=== PATIENT | female | born 1960 | race Caucasian/White ===

== ENCOUNTER 2019-01-22 07:59 | Day surgery (SDC) | payer OTHER, SELFPAY ==
--- NOTE | 2019-01-13 04:18 | HP_ITS ---
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 Is patient in pain?: No Allergies aspirin Allergy (Mild, Verified 01/13/19 13:39) Swelling Medications amitriptyline 10 mg tablet 20 mg PO DAILY tab 01/13/19 [History Confirmed 01/13/19] citalopram 20 mg tablet 20 mg PO DAILY 01/13/19 [History Confirmed 01/13/19] esomeprazole magnesium 40 mg capsule,delayed release 40 mg PO DAILY 01/13/19 [History Confirmed 01/13/19] gabapentin 400 mg capsule 400 mg PO TID 01/13/19 [History Confirmed 01/13/19] hydrocodone 5 mg-acetaminophen 325 mg tablet 1 tab PO QHS 01/13/19 [History Confirmed 01/13/19] methocarbamol 500 mg tablet 500 mg PO TID 01/13/19 [History Confirmed 01/13/19] potassium chloride ER 10 mEq capsule,extended release 10 meq PO DAILY 01/13/19 [History Confirmed 01/13/19] PFSH Medical History Back pain (Acute) GERD (gastroesophageal reflux disease) (Acute) Hiatal hernia (Acute) Surgical History History of esophagogastroduodenoscopy (EGD) (Acute) S/P colonoscopy with polypectomy (Acute) S/P hernia repair (Acute) Family History Father Kidney disease Cancer kidney Social History (Updated 01/13/19 @ 16:19 by Kishan Irvin MD) Smoking Status: Never smoker alcohol intake: current alcohol intake frequency: a few times a week HPI HPI HPI: CARINA KUNZ is a 58 F who presents to the office today for HPI HPI Surgical H&P: Yes HPI: CARINA KUNZ is a 58 F who presents to the office today for Evaluation of a symptomatic hiatal hernia. Patient had a work-up for her shortness of breath which included a CTA of the chest. This showed a large sliding hiatal hernia with compressive atelectasis in the right lower lung. She has been on Nexium for better than 10 years. And usually has good relief with this. But recently she has noted an increasing amount of belching as well as nausea while being on the Nexium.She notes no reflux of symptoms when she bends over to tie her shoes. Patient had a recent upper scope completed in [place] which showed some mucosal changes consistent with Osorio's but biopsy results came back showing only some minimal intestinal metaplasia but no dysplasia.Of note the endoscopist did not mention the hiatal hernia being large whatsoever. And unfortunately I have no actual imaging to look at from the CAT scan. ROS General General: No weight change, appetite, fatigue, colon cancer, breast cancer or weakness HEENT HEENT: No difficulty swallowing, eye injury, eye surgery, swollen glands or hoarseness Endo Endocrine: No thyroid disease, diabetes mellitus, thyroid cancer, Hair loss, heat intolerance or cold intolerance Skin Skin: No rash or changing moles Breast Breast: No left breast lump, right breast lump, nipple discharge, breast pain, abnormal mammogram, abnormal US or breast enlargement Musc Musculoskeletal: Yes back problems and arthritis; no rheumatoid arthritis, gout or joint pain Cardio Cardiovascular: No murmur, pacemaker, heart disease, atrial fibrillation, high blood pressure, heart attack, heart stent, palpitations, shortness of breat with exertion or chest pain Psych Psychiatric: Yes anxiety; no depression or hearing voices Resp Respiratory: No shortness of breath, No sleep apnea, No cough, No COPD, No asthma, No emphysema, No wheezing Gastro Gastrointestinal: Yes abdominal pain, Yes nausea or vomiting, Yes diarrhea, No constipation, No blood in stool, Yes acid reflux, No hemorrhoids, No ulcers, No gallbladder problem, No black,tarry stools Peter Hematologic: No blood thinners, No blood disorders, No bleeding, No anemia, No blood clots Neuro Neurologic: No system reviewed and no additional complaints, except as docu, No as per HPI, No abnormal walking, No abnormal hearing, No abnormal movements, No abnormal speech, No behavioral changes, No burning sensations, No confusion, No seizure-like activity, No unsteadiness, No dizziness, No localized weakness, No frequent falls, No headache(s), No lack of coordination, No loss of vision, No memory loss, Yes numbness, No other visual disturbances, No radiating pain, No restless legs, No sensory deficit, No fainting, Yes tingling, No tremor(s), No weakness, No other Exam Const General: no acute distress, well developed, well hydrated Orientation: oriented to person, oriented to place, oriented to time [facility] Head: normocephalic, atraumatic Ears: external ears normal Mouth: moist mucous membranes Eyes Sclera: sclerae normal Pupils: normal by confrontation Neck Neck: no lymphadenopathy noted Neck mass: No Thyroid: thyroid normal, symmetrical Chest Chest palpation & inspection: normal inspection of the chest Breast Palpation: No nipple discharge Resp Effort & Inspection: normal respiratory effort Auscultation: clear to auscultation bilaterally Percussion: percussion normal Cardio Rate: regular rate Rhythm: regular rhythm Heart Sounds: no murmurs GI Palpation: soft, no hepatosplenomegaly, no masses, nontender Rectal Exam: other Other: Rectal exam deferred. Extrem General: normal to inspection, no clubbing, cyanosis or edema Assessment & Plan Problems 1. Hiatal hernia K44.9 2. Gastroesophageal reflux disease without esophagitis K21.9 Plan I have discussed the above with the patient. I have offered the patient esophagogastroduodenoscopy With 48-hour pH probe for evaluation. I have explained the risks/benefits of the procedure and described the procedure. I have discussed the risks with the patient, including but not limited to: infection, bleeding, perforation of the GI tract requiring emergency surgery, inability to complete the procedure, injury to any internal organs, complications of anesthesia, etc. - the patient understands and agrees to proceed. I have answered all the patient's questions to the patient's satisfaction and the patient has no further questions. The patient has been given instructions for the colon cleansing preparation. In addition the patient will need to have esophageal manometry. Orders Orders: EGD with 48 pH probe Today Coding Level of Care Code Off vis,new,level 3 Diagnoses Hiatal hernia K44.9 Gastroesophageal reflux disease without esophagitis K21.9 ??Esophagitis presence: without esophagitis 01/13/19 2660 <Electronically signed by Kishan garcia MD> Date _ Kishan Irvin MD I have re-examined the patient. There are no clinical changes since date of exam.
[2019-01-13 13:37] VITALS: BMI 27.8
[2019-01-22 08:54] VITALS: BP 121/107; PULSE 104; RESP 16; TEMP 36.6; O2SAT 100
== END 2019-01-22 08:52 | disposition home or self-care (01) ==
LOC: EN 08:01
PROVIDERS: Surgery; Family Provider Family Medicine; PCP Family Medicine; Referring Provider Surgery; Visit Provider Surgery
PROC: F00ZJWZ Instrumental Swallowing and Oral Function Assessment using Swallowing Equipment (ICD-10-PCS; CPT 43235; principal; 2019-01-22 07:55)
DX: K21.9 Gastro-esophageal reflux disease without esophagitis (principal); K44.9 Diaphragmatic hernia without obstruction or gangrene; Z79.899 Other long term (current) drug therapy
CPT/HCPCS: 91010

== ENCOUNTER 2019-01-28 06:47 | Day surgery (SDC) | payer OTHER, SELFPAY ==
--- NOTE | 2019-01-13 04:18 | HP_ITS ---
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 Is patient in pain?: No Allergies aspirin Allergy (Mild, Verified 01/13/19 13:39) Swelling Medications amitriptyline 10 mg tablet 20 mg PO DAILY tab 01/13/19 [History Confirmed 01/13/19] citalopram 20 mg tablet 20 mg PO DAILY 01/13/19 [History Confirmed 01/13/19] esomeprazole magnesium 40 mg capsule,delayed release 40 mg PO DAILY 01/13/19 [History Confirmed 01/13/19] gabapentin 400 mg capsule 400 mg PO TID 01/13/19 [History Confirmed 01/13/19] hydrocodone 5 mg-acetaminophen 325 mg tablet 1 tab PO QHS 01/13/19 [History Confirmed 01/13/19] methocarbamol 500 mg tablet 500 mg PO TID 01/13/19 [History Confirmed 01/13/19] potassium chloride ER 10 mEq capsule,extended release 10 meq PO DAILY 01/13/19 [History Confirmed 01/13/19] PFSH Medical History Back pain (Acute) GERD (gastroesophageal reflux disease) (Acute) Hiatal hernia (Acute) Surgical History History of esophagogastroduodenoscopy (EGD) (Acute) S/P colonoscopy with polypectomy (Acute) S/P hernia repair (Acute) Family History Father Kidney disease Cancer kidney Social History (Updated 01/13/19 @ 16:19 by Kishan Irvin MD) Smoking Status: Never smoker alcohol intake: current alcohol intake frequency: a few times a week HPI HPI HPI: CARINA KUNZ is a 58 F who presents to the office today for HPI HPI Surgical H&P: Yes HPI: CARINA KUNZ is a 58 F who presents to the office today for Evaluation of a symptomatic hiatal hernia. Patient had a work-up for her shortness of breath which included a CTA of the chest. This showed a large sliding hiatal hernia with compressive atelectasis in the right lower lung. She has been on Nexium for better than 10 years. And usually has good relief with this. But recently she has noted an increasing amount of belching as well as nausea while being on the Nexium.She notes no reflux of symptoms when she bends over to tie her shoes. Patient had a recent upper scope completed in [place] which showed some mucosal changes consistent with Osorio's but biopsy results came back showing only some minimal intestinal metaplasia but no dysplasia.Of note the endoscopist did not mention the hiatal hernia being large whatsoever. And unfortunately I have no actual imaging to look at from the CAT scan. ROS General General: No weight change, appetite, fatigue, colon cancer, breast cancer or weakness HEENT HEENT: No difficulty swallowing, eye injury, eye surgery, swollen glands or hoarseness Endo Endocrine: No thyroid disease, diabetes mellitus, thyroid cancer, Hair loss, heat intolerance or cold intolerance Skin Skin: No rash or changing moles Breast Breast: No left breast lump, right breast lump, nipple discharge, breast pain, abnormal mammogram, abnormal US or breast enlargement Musc Musculoskeletal: Yes back problems and arthritis; no rheumatoid arthritis, gout or joint pain Cardio Cardiovascular: No murmur, pacemaker, heart disease, atrial fibrillation, high blood pressure, heart attack, heart stent, palpitations, shortness of breat with exertion or chest pain Psych Psychiatric: Yes anxiety; no depression or hearing voices Resp Respiratory: No shortness of breath, No sleep apnea, No cough, No COPD, No asthma, No emphysema, No wheezing Gastro Gastrointestinal: Yes abdominal pain, Yes nausea or vomiting, Yes diarrhea, No constipation, No blood in stool, Yes acid reflux, No hemorrhoids, No ulcers, No gallbladder problem, No black,tarry stools Peter Hematologic: No blood thinners, No blood disorders, No bleeding, No anemia, No blood clots Neuro Neurologic: No system reviewed and no additional complaints, except as docu, No as per HPI, No abnormal walking, No abnormal hearing, No abnormal movements, No abnormal speech, No behavioral changes, No burning sensations, No confusion, No seizure-like activity, No unsteadiness, No dizziness, No localized weakness, No frequent falls, No headache(s), No lack of coordination, No loss of vision, No memory loss, Yes numbness, No other visual disturbances, No radiating pain, No restless legs, No sensory deficit, No fainting, Yes tingling, No tremor(s), No weakness, No other Exam Const General: no acute distress, well developed, well hydrated Orientation: oriented to person, oriented to place, oriented to time [facility] Head: normocephalic, atraumatic Ears: external ears normal Mouth: moist mucous membranes Eyes Sclera: sclerae normal Pupils: normal by confrontation Neck Neck: no lymphadenopathy noted Neck mass: No Thyroid: thyroid normal, symmetrical Chest Chest palpation & inspection: normal inspection of the chest Breast Palpation: No nipple discharge Resp Effort & Inspection: normal respiratory effort Auscultation: clear to auscultation bilaterally Percussion: percussion normal Cardio Rate: regular rate Rhythm: regular rhythm Heart Sounds: no murmurs GI Palpation: soft, no hepatosplenomegaly, no masses, nontender Rectal Exam: other Other: Rectal exam deferred. Extrem General: normal to inspection, no clubbing, cyanosis or edema Assessment & Plan Problems 1. Hiatal hernia K44.9 2. Gastroesophageal reflux disease without esophagitis K21.9 Plan I have discussed the above with the patient. I have offered the patient esophagogastroduodenoscopy With 48-hour pH probe for evaluation. I have explained the risks/benefits of the procedure and described the procedure. I have discussed the risks with the patient, including but not limited to: infection, bleeding, perforation of the GI tract requiring emergency surgery, inability to complete the procedure, injury to any internal organs, complications of anesthesia, etc. - the patient understands and agrees to proceed. I have answered all the patient's questions to the patient's satisfaction and the patient has no further questions. The patient has been given instructions for the colon cleansing preparation. In addition the patient will need to have esophageal manometry. Orders Orders: EGD with 48 pH probe Today Coding Level of Care Code Off vis,new,level 3 Diagnoses Hiatal hernia K44.9 Gastroesophageal reflux disease without esophagitis K21.9 ??Esophagitis presence: without esophagitis 01/13/19 8538 <Electronically signed by Kishan garcia MD> Date _ Kishan Irvin MD I have re-examined the patient. There are no clinical changes since date of exam.
[2019-01-13 13:37] VITALS: BMI 27.8
[2019-01-28 07:16] VITALS: BP 146/100; PULSE 90; RESP 16; TEMP 36.5; O2SAT 96; BMI 27.6
[2019-01-28] MEDS: Lactated Ringers 1,000 ML 75 ML IV (07:29)
[2019-01-28 08:21] VITALS: BP 134/88; BP 146/100; PULSE 90; RESP 18; TEMP 35.9; O2SAT 99
[2019-01-28 08:25] VITALS: BP 125/99; BP 146/100; PULSE 85; RESP 18; O2SAT 100
--- NOTE | 2019-01-28 08:27 | OP.ENDO_ITS ---
01/28/2019 Bismark Barlow Md Re : Upper GI endoscopy procedure for Magaly Desir Dear Cain This procedure was performed on Monday, January 28, 2019. My impressions and recommendations are as follows: Impressions : - Moderately severe reflux esophagitis. - Z-line regular, 30 cm from the incisors. - Large hiatal hernia. - Normal examined duodenum. No specimens collected. Recommendations : - Discharge patient to home. - Resume previous diet. - Continue present medications. - Refer Cardiothoracic surgeon for a second opinion at appointment to be scheduled. My findings are described in the full procedure note, which is enclosed. If I can be of further assistance, please feel free to contact me at Doctor phone number(s): , Fax: [phone], Work: . Sincerely, MD Kishan Escobedo MD 01/28/2019 8:27:30 AM This report has been signed electronically.
[2019-01-28 08:30] VITALS: BP 119/73; BP 146/100; PULSE 82; RESP 18; O2SAT 98
[2019-01-28 08:35] VITALS: BP 146/100; BP 156/97; PULSE 88; RESP 18; TEMP 36.6; O2SAT 98
[2019-01-28 09:04] VITALS: BP 146/100
== END 2019-01-28 09:05 | disposition home or self-care (01) ==
LOC: EN 06:48 → AC 06:49
PROVIDERS: Family Provider Family Medicine; PCP Family Medicine; Referring Provider Family Medicine; Visit Provider Surgery
PROC: (CPT 43235; principal; 2019-01-28 07:55)
DX: K21.0 Gastro-esophageal reflux disease with esophagitis (principal); K44.9 Diaphragmatic hernia without obstruction or gangrene; F41.9 Anxiety disorder, unspecified; F32.9 Major depressive disorder, single episode, unspecified; Z79.899 Other long term (current) drug therapy
CPT/HCPCS: 43235; J7120